=== PATIENT | female | born 1990 | race Caucasian/White ===

== ENCOUNTER 2016-09-21 14:03 | Emergency (ER) | payer MEDICAID ==
[~2016-09-21] VITALS: Wt 89.0 kg
[2016-09-21] MEDS ORDERED: DIPHTH/TET/ACEL PERTUSS (ADULT) 0.5 ML VIAL IM* ONE (15:30)
[2016-09-21] MEDS ORDERED: IBUPROFEN 600 MG TAB PO ONE (15:30)
[2016-09-21] MEDS ORDERED: LIDOCAINE 1% (MDV) 20 ML INJ SC ONE (15:30)
--- NOTE | 2016-09-21 16:00 | ERD ---
ER Documentation Chief Complaint Date/Time DATE: 09/21/16 TIME: 15:51 Chief Complaint LEFT KNEE PAIN AFTER FALL TODAY HPI This is a 25-year-old female complaining of right ankle pain and left knee skin avulsion test post fall 4 hours prior to ED arrival. Patient was hiking when she tripped and fell on her left knee. Patient states that she also twisted her right ankle during the fall. Patient denies any paresthesia or paresis on both lower extremities. Unable to recall her last tetanus shot. ROS All systems reviewed and are negative except as per history of present illness. Medications Home Meds Active Scripts Hydrocodone/Acetaminophen ([place] 5-325 Tablet) 1 Each Tablet, 1 TAB PO Q6H Y for PAIN, #10 TAB Prov:YASH MCKEON 09/21/16 Ibuprofen* (Motrin*) 600 Mg Tab, 600 MG PO Q6H Y for PAIN AND OR ELEVATED TEMP, #30 TAB Prov:YASH MCKEON 09/21/16 Allergies Allergies: Coded Allergies: No Known Allergy (Verified , 07/08/10) Uncoded Allergies: not know allergies (Allergy, Unknown, 07/08/10) PMhx/Soc History of Surgery: No Anesthesia Reaction: No Hx Neurological Disorder: No Hx Respiratory Disorders: No Hx Cardiac Disorders: No Hx Psychiatric Problems: No Hx Miscellaneous Medical Probl: No Hx Alcohol Use: No Hx Substance Use: No Hx Tobacco Use: No Physical Exam Vitals Vital Signs Date Time Temp Pulse Resp B/P Pulse Ox O2 Delivery O2 Flow Rate FiO2 09/21/16 17:47 98.2 80 18 116/69 99 Room Air 09/21/16 14:20 98.0 74 18 108/69 99 Physical Exam Physical Exam CONST: Well-developed, well-nourished, in no acute distress. Nontoxic in appearance. HEENT: Atraumatic. Normal conjunctiva. EOM intact. TM intact. External ear is normal. Clear oropharnyx without erythema. No uvular deviation. Moist mucous membranes. Supple neck. No meningismus. No submandibular induration. RESP: Clear to auscultation bilaterally. No wheezing. CARDIO: Regular rate and rhythm, no murmurs. ABD: Soft, non tender, non distended. Normal bowel sounds. No McBurney's point tenderness. No guarding or rigidity. No peritoneal signs. SKIN: Approximately 5 cm skin avulsion on the left knee with minimal oozing. No foreign body noted. BACK: No midline or flank tenderness. EXT: Decreased ROM on the right ankle joint due to pain. Cap refill is less than 2 seconds. No cyanosis or edema. Distal pulses equal and bilateral. NEURO: Awake and alert, appropriate for age. Results 24 hrs Current Medications Medications (Trade) Dose Ordered Sig/Iftikhar Route PRN Reason Start Time Stop Time Status Last Admin Dose Admin Ibuprofen (Motrin) 600 mg ONCE ONCE PO 09/21/16 15:30 09/21/16 15:31 DC 09/21/16 15:23 Lidocaine (Xylocaine 1% (Mdv) 20 ml) 20 ml ONCE ONCE SC 09/21/16 15:30 09/21/16 15:31 DC Diphtheria/ Tetanus/Acell Pertussis (Adacel) 0.5 ml ONCE ONCE IM* 09/21/16 15:30 09/21/16 15:31 DC 09/21/16 15:23 PROCEDURE: XR Ankle. CLINICAL INDICATION: Fall, pain TECHNIQUE: Three views of the right ankle are available for review. COMPARISON: None available FINDINGS: The osseous structures, articular spaces, and surrounding soft tissues of the right ankle are intact. No acute fracture or dislocation is seen. No radiopaque foreign body is identified. IMPRESSION: 1. Unremarkable right ankle x-ray series. PROCEDURE: XR Foot. CLINICAL INDICATION: Fall, pain TECHNIQUE: Three views of the right foot are available for review. COMPARISON: None available FINDINGS: The osseous structures, articular spaces, and surrounding soft tissues are intact. No acute fracture or dislocation is seen. No radiopaque foreign body is identified. Bony mineralization is normal. IMPRESSION: 1. Unremarkable right foot x-ray series. RPTAT: QQ .Sahil Fernández MD, MD Date Time Electronically viewed and signed by .Sahil Fernández MD, MD on 09/21/2016 17: 51 Procedures/MDM EMERGENCY DEPARTMENT COURSE/MEDICAL DECISION MAKING This is a 25-year-old female who comes to the emergency room secondary to complaints of right ankle pain and left knee skin avulsion status post fall today. The patient was given ibuprofen in the department. On re-evaluation, the patient 's symptoms improved. Patient will also received a tetanus shot during the ED course. Laceration Repair by me: Anesthesia: 1% lidocaine Location: Left knee Tendon/Joint/Nerves: No injury Foreign body: None detected after copious irrigation and exploration Technique: 5 simple Interrupted Sutures Complexity: No subcutaneous sutures/mucosal repair/ edge excision Post Closure Length: 5 cm Patient's bleeding was easily controlled in the department and there is no indication of anemia. No evidence of compartment syndrome, neurologic injury, vascular injury, open joint, tendon laceration, or foreign body. Patient is appropriate for outpatient follow up. XR of the right foot and right ankle were done and interpreted by Dr. Sargent. Results are normal. My primary diagnosis is skin avulsion. Secondary diagnosis is ankle sprain and foot pain Differential diagnoses considered but not limited to fractures, dislocations, compartment syndrome, neurologic injury, vascular injury, tendon laceration, septic arthritis, osteomyelitis, DVT, foreign body, muscle sprain/strain. Pt is hemodynamically stable upon reassessment. The patient was discharged for outpatient management with a prescription for [place] and ibuprofen. The patient was advised to followup with their PMD in 1-2 days and to return to the Emergency Department if there are any new or worsening symptoms. The patient understood and agreed with the diagnosis, treatment and plan. Patient is stable for discharge at this time. Departure Diagnosis: Primary Impression: Skin avulsion Additional Impressions: Ankle sprain Encounter type: initial encounter Involved ligament of ankle: unspecified ligament Laterality: right Qualified Code: S93.401A - Sprain of right ankle , unspecified ligament, initial encounter Foot pain Laterality: right Qualified Code: M79.671 - Right foot pain Condition: Stable Patient Instructions: Skin Avulsion, Muscle Strain, Extremity Referrals: COMMUNITY CLINICS YOU HAVE RECEIVED A MEDICAL SCREENING EXAM AND THE RESULTS INDICATE THAT YOU DO NOT HAVE A CONDITION THAT REQUIRES URGENT TREATMENT IN THE EMERGENCY DEPARTMENT. FURTHER EVALUATION AND TREATMENT OF YOUR CONDITION CAN WAIT UNTIL YOU ARE SEEN IN YOUR DOCTORS OFFICE WITHIN THE NEXT 1-2 DAYS. IT IS YOUR RESPONSIBILITY TO MAKE AN APPOINTMENT FOR FOLOW-UP CARE. IF YOU HAVE A PRIMARY DOCTOR --you should call your primary doctor and schedule an appointment IF YOU DO NOT HAVE A PRIMARY DOCTOR YOU CAN CALL OUR PHYSICIAN REFERRAL HOTLINE AT IF YOU CAN NOT AFFORD TO SEE A PHYSICIAN YOU CAN CHOSE FROM THE FOLLOWING [facility] [address] [facility] [id number] [facility] [address] [facility] [address] [facility] [facility] [address] [facility]. [facility] [address] [facility]. [facility] Urgent Care 7 a.m.- 11 p.m. Every Day of the Week NO APPOINTMENT OR AUTHORIZATION NEEDED Additional Instructions: Follow up in 2 days in your clinic for wound check. Follow up with your physician to remove the stitches:For Face wounds 5-7 days.For Elsewhere on the body 7-10 days. Follow-up with your primary care physician in 1-2 days. Return to the emergency department immediately should you have any new or worsening symptoms, uncontrolled fevers, or other unexplained symptoms. Take all medications as directed. YASH MCKEON Sep 21, 2016 16:00
[2016-09-21] MEDS ORDERED: HYDR-906 PO (16:25)
[2016-09-21] MEDS ORDERED: IBUP-1542 PO (16:25)
[2016-09-21 17:47] VITALS: BP 116/69; PULSE 80; RESP 18; TEMP 98.2
--- NOTE | 2016-09-21 17:52 | RADRPT ---
PROCEDURE: XR Foot. CLINICAL INDICATION: Fall, pain TECHNIQUE: Three views of the right foot are available for review. COMPARISON: None available FINDINGS: The osseous structures, articular spaces, and surrounding soft tissues are intact. No acute fractur e or dislocation is seen. No radiopaque foreign body is identified. Bony mineralization is normal. IMPRESSION: 1. Unremarkable right foot x-ray series. RPTAT: QQ .Sahil Fernández MD, MD Date Time Electronically viewed and signed by .Sahil Fernández MD, on 09/21/2016 17:51 .R/
--- NOTE | 2016-09-21 17:53 | RADRPT ---
PROCEDURE: XR Ankle. CLINICAL INDICATION: Fall, pain TECHNIQUE: Three views of the right ankle are available for review. COMPARISON: None available FINDINGS: The osseous structures, articular spaces, and surrounding soft tissues of the right ankle are intact . No acute fracture or dislocation is seen. No radiopaque foreign body is identified. IMPRESSION: 1. Unremarkable right ankle x-ray series. RPTAT: QQ .Sahil Fernández MD, MD Date Time Electronically viewed and signed by .Sahil Fernández MD, on 09/21/2016 17:53 .R/
== END 2016-09-21 17:47 | disposition home or self-care (01) ==
LOC: FTE 14:03
DX: S81.002A Unspecified open wound, left knee, initial encounter (principal); S93.401A Sprain of unspecified ligament of right ankle, initial encounter; S99.921A Unspecified injury of right foot, initial encounter; W01.0XXA Fall on same level from slipping, tripping and stumbling without subsequent striking against object, initial encounter; Y92.9 Unspecified place or not applicable; Z23 Encounter for immunization
CPT/HCPCS: 12002; 73610; 73630; 90471; 90715; Z7502; Z7610

== ENCOUNTER 2016-10-09 08:48 | Emergency (ER) | payer MEDICAID ==
[~2016-10-09] VITALS: Ht 157.5 cm; Wt 88.0 kg
[~2016-10-09 08:48] MED LIST: HYDR-906 PO; IBUP-1542 PO
[2016-10-09 09:20] VITALS: Ht 157.5 cm; Wt 88.0 kg
[2016-10-09] MEDS ORDERED: CEPH-443 PO ×2 (09:52)
[2016-10-09] MEDS ORDERED: BACTRIM PO (09:53)
[2016-10-09] MEDS ORDERED: BACITRACIN 0.9 GM OINT TOP ONE (10:00)
--- NOTE | 2016-10-09 11:32 | ERD ---
ER Documentation Chief Complaint Date/Time DATE: 10/09/16 TIME: 11:26 Chief Complaint HERE FOR SUTURE REMOVAL HPI This patient is a 25-year-old female with no significant medical history presenting to the emergency department for suture removal approximately 2 weeks post placement in her left knee. The patient reports a mild redness and slight discharge to the wound which is been ongoing for the past 5 days. The patient denies fevers, significant pain, or other symptoms at this time. The patient has been taking no oral antibiotics. ROS All systems reviewed and are negative except as per history of present illness. Medications Home Meds Active Scripts Trimethoprim-Sulfamethoxazole* (Bactrim*) 400-80 Mg Tab, 1 TAB PO BID for 7 Days , #14 TAB Prov:BONILLA PRICE PA-C 10/09/16 Cephalexin* (Keflex*) 500 Mg Capsule, 500 MG PO TID for 7 Days, #21 CAP Prov:BONILLA PRICE PA-C 10/09/16 Cephalexin* (Keflex*) 500 Mg Capsule, 500 MG PO Q6, #28 CAP Prov:BONILLA PRICE PA-C 10/09/16 Hydrocodone/Acetaminophen ([place] 5-325 Tablet) 1 Each Tablet, 1 TAB PO Q6H Y for PAIN, #10 TAB Prov:YASH MCKEON 09/21/16 Ibuprofen* (Motrin*) 600 Mg Tab, 600 MG PO Q6H Y for PAIN AND OR ELEVATED TEMP, #30 TAB Prov:YASH MCKEON 09/21/16 Allergies Allergies: Coded Allergies: No Known Allergy (Verified , 07/08/10) Uncoded Allergies: not know allergies (Allergy, Unknown, 07/08/10) PMhx/Soc History of Surgery: No Anesthesia Reaction: No Hx Neurological Disorder: No Hx Respiratory Disorders: No Hx Cardiac Disorders: No Hx Psychiatric Problems: No Hx Miscellaneous Medical Probl: No Hx Alcohol Use: No Hx Substance Use: No Hx Tobacco Use: No FmHx Noncontributory for chief complaint Physical Exam Vitals Vital Signs Date Time Temp Pulse Resp B/P Pulse Ox O2 Delivery O2 Flow Rate FiO2 10/09/16 09:20 98.6 64 18 128/67 99 Physical Exam Const: Patient is resting comfortably in no acute distress Head: Atraumatic Eyes: Normal Conjunctiva ENT: Normal External Ears, Nose and Mouth. Neck: Full range of motion..~ No meningismus. Resp: Clear to auscultation bilaterally Cardio: Regular rate and rhythm, no murmurs Abd: Soft, non tender, non distended. Normal bowel sounds Skin: There is a healing laceration to the left knee with some surrounding erythema and slight purulent discharge present. There is no warmth or significant edema noted. The patient has good range of motion passively and actively. There is no lymphatic streaking Back: No midline or flank tenderness Ext: No cyanosis, or edema Neur: Awake and alert Psych: Normal Mood and Affect Results 24 hrs Current Medications Medications (Trade) Dose Ordered Sig/Iftikhar Route PRN Reason Start Time Stop Time Status Last Admin Dose Admin Bacitracin (Bacitracin Oint (Ud)) 1 applic ONCE ONCE TOP 10/09/16 10:00 10/09/16 10:01 DC 10/09/16 09:56 Procedures/MDM 25-year-old female presenting for suture removal. Suture Removal by me: Sutures removed with tweezers and scissors without incident. Wound shows no evidence of foreign body, neurologic injury, vascular injury, open joint or tendon laceration. Wound irrigation completed in the department. Bacitracin and wound dressing applied. I will treat the patient as an outpatient with Bactrim and Keflex with 48 hour wound recheck. I have low suspicion for septic joint, deep tissue infection, bursitis, or other emergent conditions. Strict ER return precautions given. The patient understands and agrees with the discharge plan and diagnosis. Departure Diagnosis: Primary Impression: Encounter for removal of sutures Additional Impression: Cellulitis Site of cellulitis: extremity Site of cellulitis of extremity: lower extremity Laterality: left Qualified Code: L03.116 - Cellulitis of left lower extremity Ruled Out: Visit for wound check Condition: Fair Patient Instructions: Cellulitis, Suture Removal, No Complication Referrals: COMMUNITY CLINICS YOU HAVE RECEIVED A MEDICAL SCREENING EXAM AND THE RESULTS INDICATE THAT YOU DO NOT HAVE A CONDITION THAT REQUIRES URGENT TREATMENT IN THE EMERGENCY DEPARTMENT. FURTHER EVALUATION AND TREATMENT OF YOUR CONDITION CAN WAIT UNTIL YOU ARE SEEN IN YOUR DOCTORS OFFICE WITHIN THE NEXT 1-2 DAYS. IT IS YOUR RESPONSIBILITY TO MAKE AN APPOINTMENT FOR FOLOW-UP CARE. IF YOU HAVE A PRIMARY DOCTOR --you should call your primary doctor and schedule an appointment IF YOU DO NOT HAVE A PRIMARY DOCTOR YOU CAN CALL OUR PHYSICIAN REFERRAL HOTLINE AT IF YOU CAN NOT AFFORD TO SEE A PHYSICIAN YOU CAN CHOSE FROM THE FOLLOWING [facility] CL[facility]ICS [facility] [address] [facility] [address] [facility] [address] [facility] [address] [facility] [address] [facility]. [facility]. [address] Additional Instructions: Please follow up in 48 hours for wound recheck. Follow-up with your primary care physician within 1 week. Return to the emergency department immediately should you have any new or worsening symptoms, uncontrolled fevers, or other unexplained symptoms. Take all medications as directed. BONILLA PRICE PA-C Oct 09, 2016 11:32
== END 2016-10-09 10:10 | disposition home or self-care (01) ==
LOC: FTE 08:48
DX: Z48.02 Encounter for removal of sutures (principal); L03.116 Cellulitis of left lower limb
CPT/HCPCS: 99284